=== PATIENT | female | born 1990 | race Caucasian/White ===

== ENCOUNTER 2017-09-22 16:08 | Emergency (ER) | payer MEDICAID ==
[~2017-09-22] VITALS: Ht 170.2 cm; Wt 55.2 kg
[~2017-09-22 16:08] MED LIST: ALBU1.25 NEB; LORA0.5T PO; MULT-717 PO; NAPR250T6 PO; RANI150C PO
[2017-09-22] MEDS ORDERED: MAALOX/HYOSCYAMINE/LIDOCAINE 45 ML BTL PO ONE (17:00)
[2017-09-22 17:06] LABS: BASOPHILS % (AUTO) 1 % (0-1); EOSINOPHILS % (AUTO) 0 % (1-7); LYMPHOCYTES # (AUTO) 2.16 x10^3/uL (1-3.4); LYMPHOCYTES % (AUTO) 28 % (22-44); MD NO; MEAN CORPUSCULAR HEMOGLOBIN 30.9 pg (27.0-34.8); MEAN CORPUSCULAR HGB CONC 34.1 g/dL (32.4-35.8); MEAN CORPUSCULAR VOLUME 90.7 fL (80-100); MEAN PLATELET VOLUME 8.9 fL (7.4-10.4); MONOCYTES # (AUTO) 0.49 x10^3/uL (0.2-0.8); MONOCYTES % (AUTO) 6 % (2-9); NEUTROPHILS # (AUTO) 4.98 x10^3/uL (1.8-6.8); NEUTROPHILS % (AUTO) 64 % (42-75); PLATELET COUNT 210 x10^3/uL (130-400); RED BLOOD COUNT 4.78 x10^6/uL (3.82-5.3); RED CELL DISTRIBUTION WIDTH 13.1 % (9.6-15.2)
[2017-09-22 17:09] LABS: CULTURE INDICATED? YES; MICROSCOPIC INDICATED
[2017-09-22] MEDS ORDERED: MAALOX/HYOSCYAMINE/LIDOCAINE 45 ML BTL ONE (17:13)
[2017-09-22 17:16] LABS: INTERNATIONAL NORMALIZED RATIO 1.01 (0.93-1.1); PROTHROMBIN TIME 10.5 Seconds (9.6-11.5)
[2017-09-22 17:19] LABS: ALANINE AMINOTRANSFERASE 22 U/L (12-78); ALBUMIN 4.5 g/dL (3.4-5.0); ANION GAP 9 mmol/L (5-15); CALCIUM 8.8 mg/dL (8.5-10.1); CHLORIDE 109 mmol/L (98-107)
[2017-09-22 17:24] LABS: ALKALINE PHOSPHATASE 61 U/L (45-117); BILIRUBIN,TOTAL 0.7 mg/dL (0.2-1.0); CREATININE 0.72 mg/dL (0.55-1.02); TOTAL PROTEIN 7.8 g/dL (6.4-8.2)
[2017-09-22 19:53] VITALS: BP 103/64
== END 2017-09-22 20:13 | disposition home or self-care (01) ==
LOC: ED 17:06
DX: K29.00 Acute gastritis without bleeding (principal); N30.00 Acute cystitis without hematuria
CPT/HCPCS: 36415; 80053; 81001; 83690; 84703; 85025; 85610; 85730; 87086; 93005; 99285

== ENCOUNTER 2018-08-07 10:55 | Emergency (ER) | payer MEDICAID ==
[~2018-08-07] VITALS: Ht 170.2 cm; Wt 54.7 kg
[2018-08-07 11:00] VITALS: BP 105/77
--- NOTE | 2018-08-07 11:27 | NUR ---
PT AMBULATORY FROM LOBBY TO ROOM WITH STEADY GAIT AT THIS TIME.
--- NOTE | 2018-08-07 11:47 | NUR ---
PT STATES SHE HEARD A POP RIGHT WRIST WHEN SHE WENT TO GRAB SOMETHING
== END 2018-08-07 12:56 | disposition home or self-care (01) ==
LOC: ED 12:50
DX: G89.11 Acute pain due to trauma (principal); M25.531 Pain in right wrist; G40.909 Epilepsy, unspecified, not intractable, without status epilepticus; X58.XXXA Exposure to other specified factors, initial encounter; Y93.89 Activity, other specified; Y92.009 Unspecified place in unspecified non-institutional (private) residence as the place of occurrence of the external cause; Y99.8 Other external cause status
CPT/HCPCS: 29260; 99283

== ENCOUNTER 2019-04-07 11:20 | Emergency (ER) | payer MEDICAID ==
[~2019-04-07] VITALS: Ht 170.2 cm; Wt 55.0 kg
[2019-04-07 11:38] VITALS: BP 93/53
== END 2019-04-07 12:54 | disposition home or self-care (01) ==
LOC: ED 12:52
DX: B34.9 Viral infection, unspecified (principal); G40.909 Epilepsy, unspecified, not intractable, without status epilepticus; Z90.710 Acquired absence of both cervix and uterus
CPT/HCPCS: 71046; 99283

== ENCOUNTER 2019-04-14 11:50 | Emergency (ER) | payer MEDICAID ==
[~2019-04-14] VITALS: Ht 170.2 cm; Wt 52.7 kg
[2019-04-14 11:57] VITALS: BP 104/59
== END 2019-04-14 13:35 | disposition home or self-care (01) ==
LOC: ED 13:30
DX: K25.9 Gastric ulcer, unspecified as acute or chronic, without hemorrhage or perforation (principal)
CPT/HCPCS: 99283

== ENCOUNTER 2019-04-16 09:43 | Inpatient (IN) | payer MEDICAID ==
[~2019-04-16] VITALS: Ht 170.2 cm; Wt 51.0 kg
--- NOTE | 2019-04-16 10:15 | NUR ---
pt to ed for ulcers in mouth x "a few days." pt was seen here 2 days ago fro same. pt states unable to eat solid food d/t pain. pt states compliant with recommended compresses. pt connected to monitors. no c/o of cough, but occasional cough noted suring assessment. tachy, all other vss. Dr. Meeks to bs for assessment. awaiting orders.
[2019-04-16] MEDS ORDERED: SODIUM CHLORIDE 0.9% 1,000ML IVBOLUS ONE ×2 (10:30→13:30)
--- NOTE | 2019-04-16 10:31 | NUR ---
pt to xr
--- NOTE | 2019-04-16 10:48 | NUR ---
pt resting in room. tachy, vss. piv established and labs drawn and sent. ivf bolus started. no needs expressed. call light within reach. awaiting results.
[2019-04-16 10:55] LABS: BASOPHILS # (AUTO) 0.04 x10^3/uL (0-0.1); BASOPHILS % (AUTO) 0 % (0-1); EOSINOPHILS % (AUTO) 0 % (1-7); LYMPHOCYTES # (AUTO) 0.99 x10^3/uL (1-3.4); LYMPHOCYTES % (AUTO) 12 % (22-44); MD NO; MEAN CORPUSCULAR HEMOGLOBIN 30.6 pg (27.0-34.8); MEAN PLATELET VOLUME 7.6 fL (7.4-10.4); MONOCYTES % (AUTO) 5 % (2-9); NEUTROPHILS # (AUTO) 7.04 x10^3/uL (1.8-6.8); NEUTROPHILS % (AUTO) 83 % (42-75); PLATELET COUNT 317 x10^3/uL (130-400); RED BLOOD COUNT 5.05 x10^6/uL (3.82-5.3); RED CELL DISTRIBUTION WIDTH 12.2 % (9.6-15.2)
[2019-04-16 11:04] LABS: ANION GAP 13 mmol/L (5-15); CALCIUM 9.5 mg/dL (8.5-10.1); CHLORIDE 111 mmol/L (98-107); CREATININE 0.66 mg/dL (0.55-1.02)
--- NOTE | 2019-04-16 11:16 | NUR ---
pt resting in room talking on phone. vss. no needs expressed. call light within reach. all results back at this time. chart up for recheck.
[2019-04-16] MEDS ORDERED: NYSTATIN 500,000 UNITS/5 ML UDC PO SCH (11:30)
--- NOTE | 2019-04-16 12:53 | NUR ---
pt resting in room. vss. no needs expressed. call light within reach. all results back. chart up for recheck.
--- NOTE | 2019-04-16 13:01 | NUR ---
REPORT RECEIVED FROM DIVINA SARAVIA, ASSUMING CARE OF PT AT THIS TIME. MD TO BEDSIDE TO RECHECK PT, AWAITING DISPO ORDERS
[2019-04-16] MEDS ORDERED: ACETAMINOPHEN 325 MG TABLET PO PRN (13:30)
[2019-04-16] MEDS ORDERED: ONDANSETRON 2MG/ML, 2ML IVPush PRN (13:30)
[2019-04-16] MEDS ORDERED: GUAIFENESIN/DM 200-20MG, 10ML UDC PO PRN (13:30)
[2019-04-16] MEDS ORDERED: hydrALAzine 20 MG/ML, 1ML IVPush PRN (13:30)
[2019-04-16] MEDS ORDERED: ONDANSETRON ODT 4 MG PO PRN (13:30)
[2019-04-16] MEDS ORDERED: D5%-0.45% NACL 1,000 ML IV SCH (13:30)
[2019-04-16] MEDS ORDERED: TRAZODONE 50MG TABLET PO PRN (13:30)
[2019-04-16] MEDS ORDERED: POLYETHYLENE GLYCOL 17 GM PACKET PO PRN (13:30)
[2019-04-16] MEDS ORDERED: ASA/APAP/ CAFFEINE TABLET PO PRN (13:30)
[2019-04-16] MEDS ORDERED: IBUPROFEN 600 MG TABLET PO PRN (13:30)
--- NOTE | 2019-04-16 14:21 | NUR ---
REPORT GIVEN TO MARCE RN, PT READY FOR TRANSPORT TO FLOOR
[2019-04-16] MEDS: POTASSIUM CHLORIDE 20 MEQ in LACTATED RINGERS 1,000 ML IV SCH (16:06)
[2019-04-16] MEDS: NYSTATIN 500,000 UNITS/5 ML UDC PO SCH ×2 (16:06→21:27)
[2019-04-16 16:25] VITALS: BP 102/67
[2019-04-16] MEDS ORDERED: AMOX500T PO (19:08)
[2019-04-16] MEDS ORDERED: [UNRECOGNIZED DRUG - CODE] PO (19:08)
[2019-04-16 19:22] VITALS: BP 97/58
[2019-04-16] MEDS ORDERED: ACETAMINOPHEN 650 MG/20.3 ML UDC PO PRN (22:00)
[2019-04-16] MEDS: ACETAMINOPHEN 650 MG/20.3 ML UDC PO PRN (23:01)
[2019-04-17 01:56] VITALS: BP 112/72
[2019-04-17] MEDS: POTASSIUM CHLORIDE 20 MEQ in LACTATED RINGERS 1,000 ML IV SCH (02:13)
[2019-04-17 05:29] LABS: BASOPHILS # (AUTO) 0.03 x10^3/uL (0-0.1); BASOPHILS % (AUTO) 1 % (0-1); EOSINOPHILS # (AUTO) 0.03 x10^3/uL (0-0.4); EOSINOPHILS % (AUTO) 1 % (1-7); LYMPHOCYTES # (AUTO) 1.75 x10^3/uL (1-3.4); LYMPHOCYTES % (AUTO) 42 % (22-44); MD NO; MEAN CORPUSCULAR HEMOGLOBIN 30.4 pg (27.0-34.8); MEAN CORPUSCULAR HGB CONC 33.7 g/dL (32.4-35.8); MEAN PLATELET VOLUME 7.2 fL (7.4-10.4); MONOCYTES # (AUTO) 0.42 x10^3/uL (0.2-0.8); MONOCYTES % (AUTO) 10 % (2-9); NEUTROPHILS # (AUTO) 1.91 x10^3/uL (1.8-6.8); NEUTROPHILS % (AUTO) 46 % (42-75); PLATELET COUNT 320 x10^3/uL (130-400); RED BLOOD COUNT 4.33 x10^6/uL (3.82-5.3); RED CELL DISTRIBUTION WIDTH 12.5 % (9.6-15.2)
[2019-04-17 05:38] LABS: ANION GAP 8 mmol/L (5-15); CALCIUM 8.8 mg/dL (8.5-10.1); CHLORIDE 115 mmol/L (98-107)
[2019-04-17 05:39] LABS: CREATININE 0.55 mg/dL (0.55-1.02)
[2019-04-17] MEDS: NYSTATIN 500,000 UNITS/5 ML UDC PO SCH ×4 (06:28→20:34)
[2019-04-17] MEDS: ACETAMINOPHEN 650 MG/20.3 ML UDC PO PRN (06:28)
[2019-04-17 07:59] VITALS: BP 92/66
[2019-04-17] MEDS: KETOROLAC 30 MG/1 ML IV PRN ×2 (12:31→20:34)
[2019-04-17] MEDS: D5%-0.45% NACL 1,000 ML IV SCH (12:34)
[2019-04-17 15:05] VITALS: BP 98/66
[2019-04-17 19:25] VITALS: BP 95/62
[2019-04-18 01:47] VITALS: BP 99/68
[2019-04-18 05:46] LABS: ALBUMIN 3.5 g/dL (3.4-5.0); ANION GAP 5 mmol/L (5-15); CALCIUM 9.2 mg/dL (8.5-10.1); CHLORIDE 113 mmol/L (98-107)
[2019-04-18 05:48] LABS: ALANINE AMINOTRANSFERASE 17 U/L (12-78); ALKALINE PHOSPHATASE 66 U/L (45-117); BILIRUBIN,TOTAL 0.7 mg/dL (0.2-1.0); CREATININE 0.62 mg/dL (0.55-1.02)
[2019-04-18] MEDS: NYSTATIN 500,000 UNITS/5 ML UDC PO SCH (05:55)
[2019-04-18 07:40] VITALS: BP 96/65
[2019-04-18] MEDS: D5%-0.45% NACL 1,000 ML IV SCH (08:16)
[2019-04-18 08:35] LABS: % IRON SATURATION 43 % (20-55); IRON LEVEL 71 mcg/dL (50-170); TOTAL IRON BINDING CAPACITY 164 mcg/dL (250-450)
[2019-04-18] MEDS ORDERED: maalox/diphenh/lido/sucralfate 5 ML PO PRN (10:00)
[2019-04-18 14:00] VITALS: BP 98/65
[2019-04-18 19:49] VITALS: BP 100/68
[2019-04-18] MEDS: SUCRALFATE 1 GM/10 ML UDC PO PRN (22:57)
[2019-04-19 01:11] VITALS: BP 101/63
[2019-04-19] MEDS: D5%-0.45% NACL 1,000 ML IV SCH (04:03)
[2019-04-19 08:00] VITALS: BP 96/62
[2019-04-19] MEDS: SUCRALFATE 1 GM/10 ML UDC PO PRN (09:11)
[2019-04-19] MEDS ORDERED: SUCR1ORA5 PO (10:03)
[2019-04-19] MEDS ORDERED: maalox/diphenh/lido/decadron PO (10:03)
== END 2019-04-19 12:36 | disposition home or self-care (01) | DRG 115 ==
LOC: ED 11:45 → EDIP 13:11 → 3N 14:55
PROVIDERS: ADMIT Family Medicine; ATTEND Family Medicine
DX: K12.1 Other forms of stomatitis (principal); E43 Unspecified severe protein-calorie malnutrition; R64 Cachexia; E84.9 Cystic fibrosis, unspecified; E87.2 Acidosis; E16.2 Hypoglycemia, unspecified; E86.0 Dehydration; G40.909 Epilepsy, unspecified, not intractable, without status epilepticus; H66.90 Otitis media, unspecified, unspecified ear; Z90.710 Acquired absence of both cervix and uterus; Z68.1 Body mass index [BMI] 19.9 or less, adult
CPT/HCPCS: 36415; 71046; 80048; 80053; 82607; 83540; 83550; 83735; 84100; 85025; 96360; 96361; G0378; J1885; J3480; J3490; J7030; J7120

== ENCOUNTER 2020-02-03 11:58 | Emergency (ER) | payer MEDICAID ==
[~2020-02-03] VITALS: Ht 170.2 cm; Wt 57.2 kg
[~2020-02-03 11:58] MED LIST changes: +AMOX500T PO; +SUCR1ORA5 PO; +[UNRECOGNIZED DRUG - CODE] PO; +maalox/diphenh/lido/decadron PO
[2020-02-03 13:31] LABS: CLUE CELLS NONE SEEN (NONE SEEN); WET PREP WBCS FEW (FEW)
[2020-02-03 13:36] LABS: BASOPHILS # (AUTO) 0.02 x10^3/uL (0-0.1); BASOPHILS % (AUTO) 1 % (0-1); EOSINOPHILS % (AUTO) 0 % (1-7); LYMPHOCYTES # (AUTO) 1.19 x10^3/uL (1-3.4); LYMPHOCYTES % (AUTO) 23 % (22-44); MD NO; MEAN CORPUSCULAR HEMOGLOBIN 31.2 pg (27.0-34.8); MEAN CORPUSCULAR HGB CONC 33.5 g/dL (32.4-35.8); MEAN CORPUSCULAR VOLUME 93.1 fL (80-100); MEAN PLATELET VOLUME 8.1 fL (7.4-10.4); MONOCYTES # (AUTO) 0.21 x10^3/uL (0.2-0.8); MONOCYTES % (AUTO) 4 % (2-9); NEUTROPHILS # (AUTO) 3.69 x10^3/uL (1.8-6.8); NEUTROPHILS % (AUTO) 72 % (42-75); PLATELET COUNT 182 x10^3/uL (130-400); RED BLOOD COUNT 4.89 x10^6/uL (3.82-5.3); RED CELL DISTRIBUTION WIDTH 12.7 % (9.6-15.2)
[2020-02-03 14:07] VITALS: BP 107/68
--- NOTE | 2020-02-03 14:07 | NUR ---
BREAK RN: PT RESTING IN ROOM. NO ACUTE DISTRESS NOTED. CALL LIGHT IN PLACE. WILL CONTINUE TO MONITOR WHILE PRIMARY RN IS ON BREAK.
--- NOTE | 2020-02-03 14:29 | NUR ---
REPORT GIVEN TO RANI VELÁSQUEZ
== END 2020-02-03 15:06 | disposition home or self-care (01) ==
LOC: ED 12:40
DX: K62.5 Hemorrhage of anus and rectum (principal); R10.84 Generalized abdominal pain; R11.0 Nausea; R42 Dizziness and giddiness; Z90.710 Acquired absence of both cervix and uterus
CPT/HCPCS: 36415; 85025; 87210; 87491; 87591; 87808; 99283

== ENCOUNTER 2020-08-28 19:59 | Emergency (ER) | payer MEDICAID ==
[~2020-08-28] VITALS: Ht 170.2 cm; Wt 56.4 kg
[~2020-08-28 19:59] MED LIST changes: +NAPR-872 PO; -NAPR250T6 PO
--- NOTE | 2020-08-28 20:35 | NUR ---
PT PLACED IN C-COLLAR IN TRIAGE
[2020-08-28] MEDS ORDERED: METHOCARBAMOL 750 MG TABLET ONE (20:52)
[2020-08-28] MEDS ORDERED: KETOROLAC 30 MG/1 ML ONE (20:53)
[2020-08-28] MEDS ORDERED: KETOROLAC 30 MG/1 ML IM ONE (21:00)
[2020-08-28] MEDS ORDERED: METHOCARBAMOL 750 MG TABLET PO ONE (21:00)
--- NOTE | 2020-08-28 21:26 | NUR ---
PT REFUSED TORADOL, PT STATES SHE IS NOT SUPPOSE TO TAKE NSAIDS. [facility] NOTIFIED, NEW ORDER FOR TRAMADOL, PT REFUSED THAT AT THIS TIME. PT WANTS TO SEE HOW ROBAXIN WORKS.
--- NOTE | 2020-08-28 21:40 | NUR ---
CT CLEAR. C-COLLAR REMOVED. PT AT XRAY.
[2020-08-28 22:14] VITALS: BP 108/66
--- NOTE | 2020-08-28 22:50 | NUR ---
PT STATES SHE FEELS BETTER AFTER ROBAXIN
== END 2020-08-28 22:58 | disposition home or self-care (01) ==
LOC: ED 20:29
DX: S29.012A Strain of muscle and tendon of back wall of thorax, initial encounter (principal); S16.1XXA Strain of muscle, fascia and tendon at neck level, initial encounter; G40.909 Epilepsy, unspecified, not intractable, without status epilepticus; R42 Dizziness and giddiness; X58.XXXA Exposure to other specified factors, initial encounter; Y93.89 Activity, other specified; Y92.89 Other specified places as the place of occurrence of the external cause; Y99.8 Other external cause status
CPT/HCPCS: 72072; 72125; 99284